=== PATIENT | female | born 1945 | race Caucasian/White ===

== ENCOUNTER 2017-07-09 15:45 | Emergency (ER) | payer MEDICARE ==
[~2017-07-09] VITALS: Ht 162.6 cm; Wt 51.7 kg
[~2017-07-09 15:45] MED LIST: ALBUTEROL0.63 MG/3; ALBUTEROL1.25 MG/3 NEB; ALBUTEROL2.5 MG/3 M NEB; AMIODARONE HCL200 MG PO; AMLODIPINE BESY10 MG PO; AMLODIPINE BESYL5 MG PO; ASCORBIC ACID500 MG PO; ASPIR 8181 MG PO; ATORVASTATIN CA20 MG PO; AZITHROMYCIN250 MG PO; Albuterol/Ipratropium NEB; B-COMPLEX PLUS1 EACH PO; BUMETANIDE1 MG PO; BUPROPION HCL75 MG PO; CEFTIN PO; CLONIDINE HCL0.1 MG PO; CLOPIDOGREL75 MG PO; CYCLOBENZAPRINE10 MG PO; Calcium Carbonate PO; DEXILANT60 MG PO; DIFLUCAN150 MG PO; DIGOXIN125 MCG PO; DOCUSATE SODIU100 MG PO; DOXYCYCLINE HY100 MG PO; DOXYCYCLINE HYC20 MG PO; ELIQUIS PO; FEOSOL325 MG PO; FERROUS SULFAT325 M1 PO; FERROUS SULFAT325 MG PO; FLECAINIDE ACE100 MG PO; GABAPENTIN100 MG PO; GABAPENTIN400 MG PO; GABAPENTIN800 MG PO; GLIPIZIDE ER2.5 MG PO; GLIPIZIDE ER5 MG PO; GLIPIZIDE5 MG PO; HYDRALAZINE HCL25 MG PO; HYDROCHLOROTHIA25 MG PO; HYDROCODON-ACE1 EAC9 PO; IPRATROPIU0.2 MG/1 M NEB; IRON325 M1 PO; LASIX40 MG PO; LEVAQUIN500 MG PO; LEVOTHYROXINE88 MCG PO; LORAZEPAM0.5 MG PO; LYRICA50 MG PO; LYRICA75 MG; MAGNESIUM OXID400 MG PO; MELATONIN 1 MG1 EACH PO; METFORMIN HCL500 M2 PO; METFORMIN HCL500 MG PO; METOCLOPRAMIDE10 MG PO; METOPROLOL TART25 MG PO; MICARDIS40 MG PO; MINOCIN50 MG PO; MIRTAZAPINE15 MG PO; MONTELUKAST SOD10 MG PO; MUCINEX DM ER1 EACH PO; MULTAQ400 MG PO; Multivitamins/Minerals PO; NAMENDA10 MG PO; NORCO 10-325 T1 EACH; NORCO 10-325 T1 EACH PO; NORCO 5-325 TA1 EACH PO; NORVASC10 MG PO; OS-CAL 500+D T1 EACH PO; PANTOPRAZOLE SO40 MG PO; POTASSIUM CHLO20 ME1 PO; PREDNISONE20 MG PO; PROTONIX40 MG PO; QUETIAPINE FUMA25 MG PO; REGLAN10 MG PO; RISPERIDONE0.25 MG PO; ROPINIROLE HC0.25 MG PO; SPIRIVA18 MCG INH; SUCRALFATE1 GM PO; SYMBICORT 16010.2 GM INH; TERBINAFINE HC250 MG PO; TIZANIDINE HCL4 M1 PO; TRADJENTA5 MG PO; TYLENOL # 31 EA PO; TYLENOL WITH C1 EACH PO; ULTRAM50 MG PO; VENELEX OINTMEN60 GM TP; XOPENEX HFA15 GM IH; ZINC SULFATE220 M1 PO; ZOFRAN ODT4 MG PO; ZOLOFT50 MG PO; ZYVOX600 MG PO; [UNRECOGNIZED DRUG - CODE] PO
--- OUTSIDE RECORDS SUMMARY | 2017-07-09 15:48 | XMS REPORT | Clinical Summary ---
Author Author [facility] Organization [facility] Address Unknown Phone Unavailable Care Team Providers Care Staff Mine Warfare Officer Name Role Phone KosseJulio martínez PCP Allergies Active Allergy Reactions Severity Noted Date Comments Ampicillin Hives Medium 07/12/2016 Sulfa (Sulfonamide Hives Medium 07/12/2016 Antibiotics) Current Medications Prescription Sig. Disp. Refills Start End Date Status Date clonIDINE (CATAPRES) 0.1 Take 0.1 mg by mouth Active MG tablet every morning. amLODIPine (NORVASC) 10 Take 5 mg by mouth every Active mg tablet morning. Pt takes 1/2 a tablet of 10 mg=dose of 5 mg digOXIN (LANOXIN) 125 mcg Take 125 mcg by mouth Active tablet every morning. clopidogrel (PLAVIX) 75 Take 75 mg by mouth every Active mg tablet morning. BUMETanide (BUMEX) 1 MG Take 2 mg by mouth 2 Active tablet (two) times a day. predniSONE (DELTASONE) 20 Take 20 mg by mouth every Active mg tablet morning. atorvastatin (LIPITOR) 20 Take 20 mg by mouth Active MG tablet nightly. rOPINIRole (REQUIP) 0.25 Take 0.25 mg by mouth 2 Active MG tablet (two) times a day. pantoprazole (PROTONIX) Take 40 mg by mouth 2 Active 40 MG EC tablet (two) times a day. levothyroxine (SYNTHROID, Take 88 mcg by mouth Active LEVOXYL) 88 mcg tablet daily before breakfast. tiZANidine (ZANAFLEX) 4 Take 4 mg by mouth 2 Active MG tablet (two) times a day. LORAZepam (ATIVAN) 0.5 MG Take 0.5 mg by mouth 2 Active tablet (two) times a day. ipratropium-albuterol Take 3 mL by nebulization Active (DUO-NEB) 0.5-2.5 mg/mL Every 6 hours while awake nebulizer as needed (RT) for wheezing or shortness of breath. metoclopramide (REGLAN) Take 10 mg by mouth 4 Active 10 MG tablet (four) times a day as needed (nausea). montelukast (SINGULAIR) Take 10 mg by mouth daily Active 10 mg tablet as needed (allergies). flurbiprofen (ANSAID) 100 Take 100 mg by mouth 3 08/07/19 Active MG tablet (three) times a day as 17 needed (inflammation). oxyCODone-acetaminophen Take 1 tablet by mouth 08/06/19 Active (PERCOCET) 7.5-325 mg per every 6 (six) hours as 17 tablet needed for pain. LYRICA 150 mg capsule Take 150 mg by mouth 3 07/18/19 Active (three) times a day as 17 needed for other. LANTUS SOLOSTAR 100 Inject 18 Units under the 07/18/19 Active unit/mL injection (pen) skin 2 (two) times a day. 17 glipiZIDE (GLUCOTROL) 5 Take 2.5 mg by mouth Active MG tablet daily with breakfast. carbidopa-levodopa Take 1 tablet by mouth 2 09/08/19 Active (SINEMET CR) 25-100 mg (two) times a day. 17 per CR tablet doxycycline (VIBRAMYCIN) Take 100 mg by mouth 2 09/05/19 Active 100 MG capsule (two) times a day. 17 glipiZIDE (GLUCOTROL) 5 Take 2.5 mg by mouth 08/02/19 Discontin MG tablet every morning. Pt takes 17 ued 1/2 a tab of 5 mg=dose of 2.5 mg amIODarone (PACERONE) 200 Take 200 mg by mouth 09/15/19 Discontin MG tablet every morning. 17 ued pregabalin (LYRICA) 100 Take 100 mg by mouth 3 08/13/19 Discontin MG capsule (three) times a day as 17 ued needed (Neuropathy). HYDROcodone-acetaminophen Take 1 tablet by mouth 08/13/19 Discontin (NORCO) 10-325 mg per every 6 (six) hours as 17 ued tablet needed for moderate pain. terbinafine HCl (LamiSIL) Take 250 mg by mouth 07/17/19 Discontin 250 mg tablet daily as needed. 17 ued insulin GLARGINE (LANTUS) Inject 18 Units under the 10.8 mL 0 08/13/19 Discontin 100 unit/mL injection skin 2 (two) times a day 17 17 ued (vial) for 30 days. insulin lispro (HumaLOG) Inject 10 Units under the 10 mL 12 07/17/19 08/16/19 100 unit/mL injection skin 3 (three) times a 17 17 day before meals for 30 days. carbidopa-levodopa Take 1 tablet by mouth 2 60 tablet 0 08/02/19 (SINEMET CR) 25-100 mg (two) times a day for 30 17 17 per CR tablet days. flecainide (TAMBOCOR) 50 Take 1 tablet (50 mg 60 tablet 0 09/15/19 10/15/19 MG tablet total) by mouth every 12 17 17 (twelve) hours for 30 days. Active Problems Problem Noted Date COPD with acute exacerbation 08/12/2016 Chronic back pain 07/25/2016 Abdominal aortic aneurysm (AAA) 07/25/2016 Type 2 diabetes mellitus with ketoacidosis without coma 07/25/2016 COPD exacerbation 07/24/2016 Squamous cell carcinoma of lung, stage I 07/16/2016 Pneumonia of left lower lobe due to infectious organism 07/12/2016 Encounters Date Type Specialty Care Team Description 09/10/2016 [facility] General Internal Medicine Yanely Guzman MD COPD with acute - Encounter Don Caal MD exacerbation (Primary 09/14/2016 Dx); Chest pain, unspecified type; Squamous cell carcinoma of lung, stage I, unspecified laterality 08/12/2016 Emergency General Internal Medicine Dean Rosales COPD with acute - MD Pete exacerbation (Primary 08/13/2016 Jorge Guzmán, Dx); Type 2 diabetes mellitus Don Caal MD with ketoacidosis without coma, with long-term current use of insulin 07/30/2016 Anesthesia Gastroenterology Santiago Shah, [employer]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 Procedure Pass Gastroenterology 07/30/2016 Surgery Gastroenterology Tomy Ochoa MD ESOPHAGOGASTRODUODENOSCOP Y (EGD) 07/24/2016 [facility] General Internal Medicine Bethany Kendrickfarhana Martinez, COPD exacerbation - Encounter MD (Primary Dx); 08/01/2016 Titi Montero DO Anemia of chronic disease; Type 2 diabetes mellitus with ketoacidosis without coma, with long-term current use of insulin 07/12/2016 [facility] General Internal Medicine Barrington Isac Padilla Pneumonia of left lower - Encounter MD Odette lobe due to infectious 07/16/2016 Titi Montero DO organism (Primary Dx); Don Caal MD COPD exacerbation; Squamous cell carcinoma of lung, stage I, unspecified laterality after 07/08/2016 Social History Tobacco Use Types Packs/Day Years Used Date Current Some Day Smoker 30 Tobacco Cessation: Ready to Quit: No Alcohol Use Drinks/Week oz/Week Comments No Sex Assigned at Date Recorded Not on file Last Filed Vital Signs Vital Sign Reading Time Taken Blood Pressure 106/51 09/14/2016 11:30 AM CDT Pulse 70 09/14/2016 11:30 AM CDT Temperature 36 C (96.8 F) 09/14/2016 11:30 AM CDT Respiratory Rate 18 09/14/2016 11:30 AM CDT Oxygen Saturation 96% 09/14/2016 11:30 AM CDT Inhaled Oxygen - - Concentration Weight 54.4 kg (119 lb 14.9 oz) 07/27/2016 11:00 AM CDT Height 162.6 cm (5' 4") 08/12/2016 9:19 AM CDT Body Mass Index 23.42 07/27/2016 11:00 AM CDT Plan of Treatment Health Maintenance Due Date Last Done Comments FOOT EXAM 1953 OPHTHALMOLOGY EXAM 1953 COLONOSCOPY 1993 MAMMOGRAM 1993 ZOSTER VACCINE 2003 PNEUMOCOCCAL 02/04/2008 POLYSACCHARIDE VACCINE AGE 65 AND OVER PNEUMOCOCCAL-13 02/04/2008 INFLUENZA VACCINE 12/08/2016 Implants Implanted Type Area Assistant News Director Device Expiration Model / Identifier Date Serial / Lot Pacemaker-10/12/2008 Pacemaker MEDTRONIC [id number] / Implanted: 10/12/2008 (Quantity not [id number] on file) / Procedures Procedure Name Priority Date/Time Associated Diagnosis Comments ECHOCARDIOGRAM 2D Routine 09/11/2016 Results for this COMPLETE W MMODE SPECTRAL 2:30 PM CDT procedure are in the [facility] (53117) results section. ESOPHAGOGASTRODUODENOSCOP 07/30/2016 Y (EGD) 2:30 PM CDT [place] INSERT NON-TUNNEL CV Routine 07/27/2016 COPD exacerbation Results for this CATH 8:01 PM CDT Anemia of chronic disease procedure are in the results section. after 07/08/2016 Results * POC glucose (09/14/2016 12:14 PM) Only the most recent of 118 results within the time period is included. Component Value Ref Range POC glucose 135 (H) 65 - 99 mg/dL Comment: Meter ID: [id number] Access Spec: Alberto Lyn Specimen Performing Laboratory [facility] DEPARTMENT OF PATHOLOGY AND GENOMIC MEDICINE [address] [place] [address] * Echocardiogram complete w contrast and 3D if needed (09/11/2016 2:30 PM) Component Value Ref Range Velocity Ratio (V1/V2) 0.87 m/s IVS,d 1.00 0.6 - 1.2 cm Ao root annulus 3.12 cm EF 62.28 % LVPWD,d 1.70 cm AoV Mean PG 8.79 mmHg AV LVOT peak gradient 14.50 mmHg MV valve area p 1/2 3.19 cm2 method E/A ratio 2.73 E wave decelartion time 359.65 msec LVOT Diam,S 1.88 cm LVOT area 2.77 cm2 LVOT Vmax 1.90 m/s LVOT VTI 0.32 m AoV Peak PG 18.98 mmHg MV Peak E Adrian 1.31 m/s MV stenosis pressure 1/2 68.91 ms time MV Peak A Adrian 0.48 m/s AoV Area, Vmax 2.43 cm2 AoV Area, VTI 2.37 cm2 AoV Vmax 2.18 m/s LV,d 3.33 cm LV,s 2.24 cm RVSP (TR) 67.17 mmHg TR Vpeak 3.78 mm/s MV E A ratio 2.75 mmHg RA pressure 10 mmHg TR pk grad 52.60 mmHg MR Vmax 5.12 m/s MR peak grad 104.86 mmHg RVSP 67.17 mmHg AR Press Half Time 434 ms LV SYS VOL 17.04 ml LV BLANCO VOL 45.18 ml LA diam s 4.60 cm LA area s A4C 22.20 cm2 LV SV Teich 2D 28.14 ml AoV Cusp sep 1.56 Aortic Root 3.10 AoV Vmn 1.36 AR slope 2.55 Ar Vmax 3.87 IVS s 2D 1.17 LA Ao Ratio Mmode 1.47 AR maxPG 52.28 D E excurs 1.70 E f slope 0.04 E prime lat 0.08 E richar sept 0.05 PV acc T slope 7.10 PV AT 128.03 msec AoV VTI 0.38 m TR Vmax 452.72 LVOT Vmn 1.24 Pt Size 0.00 Pt Wt 0.00 LVOT mean grad 7.20 mmHg AR DT 1,485.21 msec LVPW s PLAX 1.80 cm MV Decel slope 3.63 m/s2 Specimen Performing Laboratory [facility] [address] [place] [address] Narrative The left ventricular chamber size is normal. The right ventricle size is moderately enlarged. Normal right ventricular function. The aortic valve appears trileaflet. Mild aortic regurgitation. No evidence of aortic valve stenosis. Moderate pulmonary hypertension, PA systolic pressure 65mmHg * Blood culture, aerobic & anaerobic (09/11/2016 8:51 AM) Only the most recent of 5 results within the time period is included. Component Value Ref Range Blood culture isolate No growth after 5 days of incubation. Comment: Specimen Information Specimen Source: Blood Specimen Site: Unspecified Specimen Performing Laboratory Blood [facility] DEPARTMENT OF PATHOLOGY AND GENOMIC MEDICINE [address] [place] [address] * Troponin (09/10/2016 9:14 PM) Only the most recent of 9 results within the time period is included. Component Value Ref Range Troponin <0.300 0.000 - 0.300 ng/mL Comment: 0.30 - 1.49 ng/ml May indicate increased risk of acute coronary syndrome. >=1.5 ng/ml Consistent with acute myocardial infarction. The diagnostic value of a single normal or non-diagnostic result is questionable. Serial samples at 2-6 hour intervals are required to rule out acute myocardial injury. Specimen Performing Laboratory Plasma specimen [facility] DEPARTMENT OF PATHOLOGY AND GENOMIC MEDICINE [address] [place] [address] * Digoxin level (09/10/2016 9:14 PM) Only the most recent of 2 results within the time period is included. Component Value Ref Range Digoxin 1.0 0.8 - 2.0 ng/mL Comment: For valid Digoxin results, at least 6 hours should elapse between time of last dose and collection of blood. Otherwise, result may be false high. Therapeutic Range: 0.8 - 2.0 ng/mL Specimen Performing Laboratory Plasma specimen [facility] DEPARTMENT OF PATHOLOGY AND GENOMIC MEDICINE [id number] [place] [address] [place] [address] * Lipid panel (09/10/2016 9:14 PM) Only the most recent of 2 results within the time period is included. Component Value Ref Range Cholesterol 192 <200 mg/dL Triglycerides 190 (H) <150 mg/dL HDL cholesterol 51 >40 mg/dL LDL cholesterol 121 (H)Comment: Result obtained by direct LDL <100 mg/dL measurement Lipid panel SeeBelow interpretation Comment: Total Cholesterol (mg/dL) <200 Desirable 200-239 Borderline-high >=240 High Triglycerides (mg/dL) <150 Normal 150-199 Borderline-high 200-499 High >=500 Very high HDL Cholesterol (mg/dL) <40 Low (male) <40 Low (female) LDL Cholesterol (mg/dL) <100 Optimal 100-129 Near or above optimal 130-159 Borderline-high 160-189 High >=190 Very high Risk Catergories that modify LDL goals. Risk Catergories LDL goal (mg/dL) CHD and CHD risk equivalent <100 (10-year risk >20%) Multiple (2+) risk factors <130 (10-year risk=<20%) 0-1 risk factors <160 (<10-year risk) Defining levels of lipids in metabolic syndrome Triglycerides >=150 mg/dL HDL Cholesterol Men <40 mg/dL Women <40 mg/dL Non-HDL cholesterol is a second target for therapy in persons with high triglycerides (>=200 mg/dL) Specimen Performing Laboratory Plasma specimen [facility] DEPARTMENT OF PATHOLOGY AND GENOMIC MEDICINE [address] [place] [address] * ECG ED Preliminary Interpretation - NOT AN ORDER (09/10/2016 2:13 PM) Jayleen Guzman MD 09/10/20162:13 PM ECG ED Preliminary Interpretation - Not an Order Performed by: YANELY GUZMAN Authorized by: YANELY GUZMAN ECG reviewed by ED Physician in the absence of a aircraft skin burnisher: yes Rate: ECG rate:70 Rhythm: Rhythm: paced Pacing: Type of pacing:AV * XR Chest 1 Vw Portable (09/10/2016 1:51 PM) Only the most recent of 4 results within the time period is included. Specimen Performing Laboratory [facility] [address] [place] [address] Narrative PROCEDURE:XR CHEST 1 VW PORTABLE CLINICAL HISTORY:Chest Pain cough. History of left breast carcinoma. COMPARISON:August 12, 2016-July 24, 2016 TECHNIQUE: A single view of the chest was performed in the AP upright projection. FINDINGS: No active pleural, parenchymal, or mediastinal abnormality is noted. A dual-lead pacemaker is present with the proximal lead projected over the region of the right atrium and the distal lead tip projected in the vicinity of the right ventricular apex. The patient has had a prior median sternotomy and CABG surgery. Possible surgical lalita are seen projected at the base of the left neck and in the left axilla. Noacute abnormality is demonstrated of the visualized bones of the thorax. IMPRESSION: Noacute abnormality in the chest. [id number] Procedure Note Interface, Radiology Results Incoming - 09/10/2016 2:11 PM CDT PROCEDURE: XR CHEST 1 VW PORTABLE CLINICAL HISTORY: Chest Pain cough. History of left breast carcinoma. COMPARISON: August 12, 2016-July 24, 2016 TECHNIQUE: A single view of the chest was performed in the AP upright projection. FINDINGS: No active pleural, parenchymal, or mediastinal abnormality is noted. A dual-lead pacemaker is present with the proximal lead projected over the region of the right atrium and the distal lead tip projected in the vicinity of the right ventricular apex. The patient has had a prior median sternotomy and CABG surgery. Possible surgical lalita are seen projected at the base of the left neck and in the left axilla. No acute abnormality is demonstrated of the visualized bones of the thorax. IMPRESSION: No acute abnormality in the chest. [id number] * Estimated GFR (09/10/2016 1:30 PM) Only the most recent of 17 results within the time period is included. Component Value Ref Range GFR Non Af Amer 40 (A) mL/min/1.73 m2 GFR Af Amer 49 (A) mL/min/1.73 m2 Comment: Chronic kidney disease: <60 mL/min/1.73m2 Kidney failure: <15 mL/min/1.73m2 The estimated GFR is calculated from the IDMS-traceable Modification of Diet in Renal Disease Equation. The accuracy of the calculation is poor when the creatinine is normal. Calculated values >90 mL/min/1.73m2 are not reported. This equation has not been validated in children (<18 years), women, the elderly (>70 years), or ethnic groups other than Caucasians and Americans. Specimen Performing Laboratory Plasma specimen [facility] OF PATHOLOGY AND [facility] [id number] [place] [address] [place] [address] * Partial thromboplastin time, activated (09/10/2016 1:30 PM) Only the most recent of 3 results within the time period is included. Component Value Ref Range PTT 19.5 (L) 23.0 - 36.0 sec Comment: PTT therapeutic range for unfractionated heparin is 61.0-112.0 seconds which corresponds to Anti-Xa 0.3-0.7 U/ml. Specimen Performing Laboratory Blood [facility] PATHOLOGY AND [facility] [id number] [place] [address] [place] [address] * Prothrombin time with INR (09/10/2016 1:30 PM) Only the most recent of 4 results within the time period is included. Component Value Ref Range Prothrombin time 12.8 12.0 - 15.0 sec INR 1.0 Comment: The International Normalized Ratio (INR) is a therapeutic monitoring tool for patients who are stable on oral anticoagulant therapy. An INR of 2.0-3.0 is suggested for deep vein thrombosis/pulmonary embolism. Specimen Performing Laboratory Blood [facility] PATHOLOGY AND [facility] [id number] [place] [address] [place] [address] * CBC with platelet and differential (09/10/2016 1:30 PM) Only the most recent of 13 results within the time period is included. Component Value Ref Range WBC 10.70 4.50 - 11.00 k/uL RBC 3.02 (L) 4.20 - 5.50 m/uL HGB 8.2 (L) 12.0 - 16.0 g/dL HCT 26.9 (L) 37.0 - 47.0 % MCV 89.1 82.0 - 100.0 fL MCH 27.2 27.0 - 34.0 pg MCHC 30.5 (L) 31.0 - 37.0 g/dL RDW - SD 61.9 (H) 37.0 - 55.0 fL MPV 11.9 8.8 - 13.2 fL Platelet count 290 150 - 400 k/uL Nucleated RBC 0.00 /100 WBC Neutrophils 72.7 (H) 39.0 - 69.0 % Lymphocytes 20.6 (L) 25.0 - 45.0 % Monocytes 5.0 0.0 - 10.0 % Eosinophils 0.4 0.0 - 5.0 % Basophils 0.1 0.0 - 1.0 % Immature granulocytes 1.2 (H)Comment: "Immature granulocytes" 0.0 - 1.0 % (promyelocytes, myelocytes, metamyelocytes) Specimen Performing Laboratory Blood [facility] DEPARTMENT OF PATHOLOGY AND GENOMIC MEDICINE [address] [place] [address] * Magnesium level (09/10/2016 1:30 PM) Only the most recent of 6 results within the time period is included. Component Value Ref Range Magnesium 2.0 1.6 - 2.4 mg/dL Specimen Performing Laboratory Plasma specimen [facility] OF PATHOLOGY AND [facility] [address] [place] [address] * Comprehensive metabolic panel (09/10/2016 1:30 PM) Only the most recent of 7 results within the time period is included. Component Value Ref Range Sodium 146 135 - 148 mEq/L Potassium 4.2 3.5 - 5.0 mEq/L Chloride 105 98 - 112 mEq/L CO2 23 (L) 24 - 31 mEq/L Anion gap 18 (H) 7 - 15 mEq/L Comment: Starting from August , anion gap calculation no longer incorporates potassium. Please note the change. BUN 25 (H) 8 - 23 mg/dL Creatinine 1.3 (H) 0.5 - 0.9 mg/dL Glucose 174 (H) 65 - 99 mg/dL Calcium 9.1 8.8 - 10.2 mg/dL Protein 6.2 (L) 6.3 - 8.3 g/dL Comment: 4.6-7.0 g/dL 1 week 4.4-7.6 g/dL 7 months-1year 5.1-7.3 g/dL 1-2 years 5.6-7.5 g/dL >3 years 6.0-8.0 g/dL 18-150 6.3-8.3 g/dL Albumin 3.5 3.5 - 5.0 g/dL A/G ratio 1.3 0.7 - 3.8 Alkaline phosphatase 66 35 - 104 U/L AST 12 10 - 35 U/L ALT 11 5 - 50 U/L Total bilirubin 0.4 0.0 - 1.2 mg/dL Specimen Performing Laboratory Plasma specimen [facility] DEPARTMENT PATHOLOGY AND [address] [place] [address] * ECG 12 lead (09/10/2016 1:14 PM) Only the most recent of 5 results within the time period is included. Component Value Ref Range Ventricular rate 70 Atrial rate 50 QRSD interval 78 QT interval 394 QTC interval 425 QRS axis 1 -19 T wave axis 239 EKG impression Accelerated Junctional rhythm with frequent AV dual-paced complexes-Left ventricular hypertrophy with repolarization abnormality-Abnormal ECG-In automated comparison with ECG of 12-AUG-2016 09:20,-Electronic ventricular pacemaker has replaced Junctional rhythm- Specimen Performing Laboratory [facility] [address] [place] [address] * Smear review (08/13/2016 7:05 AM) Only the most recent of 4 results within the time period is included. Component Value Ref Range Platelet slide review Maru adequate Anisocytosis Moderate Polychromasia Occasional Tear drop cells Occasional Schistocytes Occasional [place] cells Occasional Elliptocytes Moderate (A) Specimen Performing Laboratory [facility] DEPARTMENT PATHOLOGY AND [address] [place] [address] * Phosphorus level (08/12/2016 11:00 AM) Only the most recent of 4 results within the time period is included. Component Value Ref Range Phosphorus 3.2 2.4 - 4.5 mg/dL Specimen Performing Laboratory Plasma specimen [facility] DEPARTMENT PATHOLOGY AND [address] [place] [address] * Lactic acid level (08/12/2016 11:00 AM) Only the most recent of 3 results within the time period is included. Component Value Ref Range Lactic acid 1.3 0.5 - 2.2 mmol/L Specimen Performing Laboratory Plasma specimen [facility] DEPARTMENT PATHOLOGY [address] [place] [address] * Hemoglobin A1c (08/12/2016 11:00 AM) Only the most recent of 2 results within the time period is included. Component Value Ref Range Hemoglobin A1C 6.9 (H) 4.0 - 6.0 % Comment: Less than 6% - Goal of therapy for Type II Diabetes Less than 7%- Goal of therapy for Type I Diabetes Less than 8%- Acceptable control for Type I or Type II Diabetes Greater than 8%- Unacceptable control; action indicated. (A DA94) Specimen Performing Laboratory Blood [facility] DEPARTMENT PATHOLOGY AND [facility] [address] [place] [address] * Group A strep, rapid antigen (08/12/2016 9:58 AM) Component Value Ref Range Group A strep, rapid Negative for Group A Streptococcus antigen. All antigen result negative Group A Streptococcus antigen screens are confirmed by culture. Comment: Specimen Information Specimen Source: Throat Specimen Site: Not otherwise specified Specimen Performing Laboratory Throat - Not otherwise [facility] PATHOLOGY [facility] specified [address] [place] [address] * Influenza antigen (08/12/2016 9:58 AM) Component Value Ref Range Influenza antigen Negative for Influenza A/B antigen. Comment: Specimen Information Specimen Source: Throat Specimen Site: Not otherwise specified Specimen Performing Laboratory Throat - Not otherwise [facility] PATHOLOGY [facility] specified [address] [place] [address] * Strep screen culture (08/12/2016 9:31 AM) Component Value Ref Range Strep screen culture No beta hemolytic Streptococci isolated isolate Comment: Specimen Information Specimen Source: Throat Specimen Site: Not otherwise specified Specimen Performing Laboratory Throat - Not otherwise [facility] DEPARTMENT OF PATHOLOGY AND GENOMIC MEDICINE specified [address] [place] [address] * B natriuretic peptide (08/12/2016 9:31 AM) Only the most recent of 2 results within the time period is included. Component Value Ref Range BNP 245 (H) 0 - 100 pg/mL Specimen Performing Laboratory Blood [facility] DEPARTMENT PATHOLOGY AND [facility] [address] [place] [address] * Basic metabolic panel (08/01/2016 6:10 AM) Only the most recent of 10 results within the time period is included. Component Value Ref Range Sodium 134 (L) 135 - 148 mEq/L Potassium 4.3 3.5 - 5.0 mEq/L Chloride 98 98 - 112 mEq/L CO2 22 (L) 24 - 31 mEq/L Anion gap 14 7 - 15 mEq/L Comment: Starting from August , anion gap calculation no longer incorporates potassium. Please note the change. BUN 42 (H) 8 - 23 mg/dL Creatinine 1.5 (H) 0.5 - 0.9 mg/dL Glucose 137 (H) 65 - 99 mg/dL Calcium 8.5 (L) 8.8 - 10.2 mg/dL Specimen Performing Laboratory Plasma specimen [facility] DEPARTMENT OF PATHOLOGY AND GENOMIC MEDICINE [address] [place] [address] * Surgical pathology request (07/30/2016 3:40 PM) Component Value Ref Range Surgical pathology report See link below for PDF Lab Report Specimen Performing Laboratory [facility] DEPARTMENT OF PATHOLOGY AND GENOMIC MEDICINE [address] [place] [address] * CT Stroke Brain Wo Contrast (07/30/2016 1:17 PM) Specimen Performing Laboratory [facility] [address] [place] [address] Narrative Study: CT STROKE BRAIN WO CONTRAST History:STROKE COMPARISON:May 20, 2016 TECHNIQUE: Multiple axial CT images of the head obtained without IV contrast. CT imaging was performed with iterative reconstruction technique and/or automated exposure control to reduce radiation dose. FINDINGS: Parenchymal volume is mildly diffusely decreased similar to the prior exam.. There are changes of chronic small vessel ischemic disease There are no signs of significant edema or acute hemorrhage, midline shift, hydrocephalus, or extra axial collections. .The visualized paranasal sinuses are well aerated.The mastoid air cells are well aerated. No destructive calvarial lesions are seen. The visualized orbits are unremarkable. IMPRESSION: No acute intracranial hemorrhage or mass effect. The patient's ICU nurse was notified of the findings at 1:29 PM July 30, 2016. [facility]-[id number] Procedure Note Interface, Radiology Results Incoming - 07/31/2016 3:18 PM CDT Study: CT STROKE BRAIN WO CONTRAST History:STROKE COMPARISON:May 20, 2016 TECHNIQUE: Multiple axial CT images of the head obtained without IV contrast. CT imaging was performed with iterative reconstruction technique and/or automated exposure control to reduce radiation dose. FINDINGS: Parenchymal volume is mildly diffusely decreased similar to the prior exam.. There are changes of chronic small vessel ischemic disease There are no signs of significant edema or acute hemorrhage, midline shift, hydrocephalus, or extra axial collections. .The visualized paranasal sinuses are well aerated. The mastoid air cells are well aerated. No destructive calvarial lesions are seen. The visualized orbits are unremarkable. IMPRESSION: No acute intracranial hemorrhage or mass effect. The patient's ICU nurse was notified of the findings at 1:29 PM July 30, 2016. [facility]-[id number] * Occult blood, stool (07/30/2016 2:45 AM) Component Value Ref Range Occult blood, stool Positive for Occult blood (A) Comment: Specimen Information Specimen Source: Stool Specimen Site: Preserved Specimen Performing Laboratory Stool - Preserved [facility] DEPARTMENT OF PATHOLOGY AND GENOMIC MEDICINE [address] [place] [address] [place] [address] * Hemoglobin & hematocrit (07/29/2016 6:46 PM) Only the most recent of 2 results within the time period is included. Component Value Ref Range HGB 9.6 (L) 12.0 - 16.0 g/dL HCT 30.1 (L) 37.0 - 47.0 % Specimen Performing Laboratory Blood [facility] DEPARTMENT OF PATHOLOGY AND GENOMIC MEDICINE [id number] [place] [address] [place] [address] * Transfuse RBC (07/28/2016 6:02 AM) Only the most recent of 3 results within the time period is included. * CENTRAL LINE (07/27/2016 8:01 PM) Narrative Mango Mckoy MD 07/27/20168:01 PM Central Line Insertion Performed by: MANGO MCKOY Authorized by: MANGO MCKOY Consent: Consent obtained:Written and verbal Consent given by:Patient Risks discussed:Arterial puncture, bleeding, infection, incorrect placement, nerve damage and pneumothorax Alternatives discussed:Delayed treatment [place] protocol: Procedure explained and questions answered to patient or proxy's satisfaction: yes Relevant documents present and verified: yes Test results available and properly labeled: yes Imaging studies available: yes Required blood products, implants, devices, and special equipment available: yes Site/side marked: yes Immediately prior to procedure, a time out was called: yes Patient identity confirmed:Verbally with patient, arm band and provided demographic data Pre-procedure details: Hand hygiene: Hand hygiene performed prior to insertion Sterile barrier technique: All elements of maximal sterile technique followed Skin preparation:ChloraPrep Skin preparation agent: Skin preparation agent completely dried prior to procedure Sedation: Sedation Type:Narcotic Narcotic(s) used::Morphine Anesthesia (see MAR for exact dosages): Anesthesia method:Local infiltration Local anesthetic:Lidocaine 1% w/o epi Procedure details: Catheter type:Triple lumen Catheter size:7 Fr Catheter site: internal jugular vein Catheter Site Laterality:Left Patient position:Reverse Trendelenburg Landmarks identified: yes Ultrasound guidance: yes Number of attempts:2 Successful placement: yes Post-procedure details: Post-procedure:Dressing applied and line sutured Assessment:Blood return through all ports and free fluid flow Patient tolerance of procedure:Tolerated well, no immediate complications Comments: Awaiting for PCXR. * Prepare RBC, 2 Units (07/26/2016 12:19 PM) Component Value Ref Range Product name Apheresis -1 LR #2 Unit number [id number] Product code [id number] Dispense status Transfused Blood expiration date 20160819 Blood type code 6200 Blood type A POSITIVE Product name Apheresis -1 LR #1 Unit number [id number] Product code [id number] Dispense status Transfused Blood expiration date 20160819 Blood type code 6200 Blood type A POSITIVE Specimen Performing Laboratory [facility] DEPARTMENT OF PATHOLOGY AND GENOMIC MEDICINE [address] [place] [address] [place] [address] * Type and screen (07/26/2016 12:19 PM) Component Value Ref Range ABO grouping A Rh type POS Antibody screen NEG Specimen Performing Laboratory Blood [facility] DEPARTMENT OF PATHOLOGY AND GENOMIC MEDICINE [address] [place] [address] [place] [address] * Urinalysis screen and microscopy, with reflex to culture (07/24/2016 8:05 AM) Only the most recent of 2 results within the time period is included. Component Value Ref Range Specimen site Clean catch Color, UA Straw Appearance, UA Cloudy Specific gravity, UA 1.010 1.001 - 1.035 pH, UA 7.0 5.0 - 8.5 Protein, UA Negative Negative Glucose, UA Negative Negative Ketones, UA Negative Negative Bilirubin, UA Negative Negative Blood, UA Negative Negative Nitrite, UA Negative Negative Urobilinogen, UA Negative <2.0 Leukocyte esterase, UA Negative Negative Epithelial cells, UA Many /HPF WBC, UA 0-5 0 - 4 /HPF RBC, UA 0-5 0 - 2 /HPF Bacteria, UA None seen None seen Yeast, UA Many (A) Yeast with pseudohyphae, None seen UA Specimen Performing Laboratory Urine [facility] DEPARTMENT OF PATHOLOGY AND GENOMIC MEDICINE [address] [place] [address] Narrative CBC only; Does not include a differential Specimen must be received in the laboratory within 2 hours of collection. Specimen Source->Urine * Gram stain (07/24/2016 8:05 AM) Component Value Ref Range Gram stain isolate Rare WBC's Rare Gram positive rods Comment: Specimen Information Specimen Source: Urine Specimen Site: See UA Specimen Performing Laboratory Urine [facility] DEPARTMENT OF PATHOLOGY AND GENOMIC MEDICINE [address] [place] [address] * Urine culture (07/24/2016 8:05 AM) Only the most recent of 2 results within the time period is included. Component Value Ref Range Urine culture isolate Enterococcus faecalis >10-5 cfu/ml The performance characteristics of this assay on this isolate were validated by the Microbiology Laboratory at [facility]. This source has not been approved by the U.S. Food and Drug Administration. The results are not intended to be used as the sole means for clinical diagnosis or patient management. The Microbiology Laboratory is authorized under the clinical Laboratory Improvement Amendments of 1988 (CLIA-88) to perform high complexity testing. The performance characteristics of this assay on this isolate were validated by the Microbiology Laboratory at [facility]. This source has not been approved by the U.S. Food and Drug Administration. The results are not intended to be used as the sole means for clinical diagnosis or patient management. The Microbiology Laboratory is authorized under the clinical Laboratory Improvement Amendments of 1988 (CLIA-88) to perform high complexity testing. (A) Comment: Specimen Information Specimen Source: Urine Specimen Site: See UA Specimen Performing Laboratory Urine [facility] DEPARTMENT OF PATHOLOGY AND GENOMIC MEDICINE [address] [place] [address] Organism Antibiotic Method Susceptibility Enterococcus faecalis Ampicillin ANDREE 8 mcg/mL: Susceptible Enterococcus faecalis Nitrofurantoin ANDREE <=16 mcg/mL: Susceptible Enterococcus faecalis Levofloxacin ANDREE >4 mcg/mL: Resistant Enterococcus faecalis Linezolid ANDREE <=1 mcg/mL: Susceptible Enterococcus faecalis Minocycline ANDREE >8 mcg/mL: Resistant Enterococcus faecalis Tetracycline ANDREE >8 mcg/mL: Resistant Enterococcus faecalis Vancomycin ANDREE 1 mcg/mL: Susceptible * XR Chest 1 Vw (07/24/2016 5:34 AM) Specimen Performing Laboratory [facility] [address] [place] [address] Narrative EXAMINATION:XR CHEST 1 VW CLINICAL HISTORY:Chest Pain COMPARISON:07/12/2016 IMPRESSION: Right-sided pacemaker is unchanged. Cardiac silhouette is upper limits of normal. Chronic appearing interstitial lung markings. Minimal vascular congestion. No effusions or pneumothorax. No other significant interval change. [facility]-[id number] Procedure Note Interface, Radiology Results Incoming - 07/24/2016 6:04 AM CDT EXAMINATION: XR CHEST 1 VW CLINICAL HISTORY: Chest Pain COMPARISON: 07/12/2016 IMPRESSION: Right-sided pacemaker is unchanged. Cardiac silhouette is upper limits of normal. Chronic appearing interstitial lung markings. Minimal vascular congestion. No effusions or pneumothorax. No other significant interval change. [facility]-[id number] * CBC hemogram (07/24/2016 5:05 AM) Component Value Ref Range WBC 18.93 (H) 4.50 - 11.00 k/uL RBC 2.96 (L) 4.20 - 5.50 m/uL HGB 7.9 (L) 12.0 - 16.0 g/dL HCT 25.9 (L) 37.0 - 47.0 % MCV 87.5 82.0 - 100.0 fL MCH 26.7 (L) 27.0 - 34.0 pg MCHC 30.5 (L) 31.0 - 37.0 g/dL RDW - SD 54.4 37.0 - 55.0 fL MPV 11.9 8.8 - 13.2 fL Platelet count 302 150 - 400 k/uL Nucleated RBC 0.00 /100 WBC Specimen Performing Laboratory Blood [facility] DEPARTMENT OF PATHOLOGY AND GENOMIC MEDICINE [address] [place] [address] Narrative CBC only; Does not include a differential Specimen must be received in the laboratory within 2 hours of collection. Specimen Source->Urine * Glucose level (07/13/2016 3:03 PM) Only the most recent of 2 results within the time period is included. Component Value Ref Range Glucose 672 (HH) 65 - 99 mg/dL Comment: Results called to and read back by LOUISE SYED at 15:29 07/13/2016 BY [facility] Specimen Performing Laboratory Plasma specimen [facility] DEPARTMENT OF PATHOLOGY AND GENOMIC MEDICINE [address] [place] [address] * Lipase level (07/12/2016 8:25 PM) Component Value Ref Range Lipase 13 13 - 60 U/L Specimen Performing Laboratory Plasma specimen [facility] PATHOLOGY AND GENOMIC [facility] [address] [place] [address] Narrative Specimen must be received in the laboratory within 2 hours of collection. Specimen Source->Urine * Creatine kinase, total (CPK) (07/12/2016 8:25 PM) Component Value Ref Range Creatine kinase 32 26 - 192 U/L Specimen Performing Laboratory Plasma specimen [facility] DEPARTMENT PATHOLOGY AND GENOMIC [facility] [id number] [place] [address] [place] [address] Narrative Specimen must be received in the laboratory within 2 hours of collection. Specimen Source->Urine * Amylase level (07/12/2016 8:25 PM) Component Value Ref Range Amylase 20 13 - 73 U/L Specimen Performing Laboratory Plasma specimen [facility]OLOGY [facility] [id number] [place] [address] [place] [address] Narrative Specimen must be received in the laboratory within 2 hours of collection. Specimen Source->Urine after 07/08/2016 Insurance Payer Benefit Subscriber ID Type Phone Address Plan / Group MEDICARE MEDICARE xxxxxxxxxx Medicare [place] PART A [place] B AARP AARP xxxxxxxxxxx [place] [address]
--- OUTSIDE RECORDS SUMMARY | 2017-07-09 15:49 | XMS REPORT | Continuity of Care Document ---
Author Author [facility] Organization [facility] Address [address] [place] [address] Phone Unavailable Care Team Providers Care Tax Compliance Officer Name Role Phone RDAHA PAYNE DO PCP Insurance Providers Guarantor Serene Andrade Address [address] [place] [address] Email [email or web address] Payer Medicare A & B Policy Number [id number] Subscriber's Name Serene Andrade Olamide Relationship 18 Self / Same As Patient Effective Date 08 Advance Directives Directive Response Recorded Date/Time Does the patient have an advance directive? Yes 07/04/17 1:02am If yes, is advance directive on file with [facility]? No 07/04/17 1:02am If not on file with [facility] will patient provide a copy? No 07/04/17 1:02am Do you have a Directive to Physician? No 07/03/17 12:51pm Do you have a Medical Power of Fruit Shipper? No 07/03/17 12:51pm Do you have an out of hospital Do Not Resuscitate Order? No 07/03/17 12:51pm Do you have any special needs we should be aware of? No 07/03/17 12:51pm Do you have a support person here with you today? No 07/03/17 12:51pm Did patient receive Notice of Privacy Practices? No 07/03/17 12:51pm Did patient receive patient rights and responsibilities? No 07/03/17 12:51pm Problems Medical Problem Onset Date Status Acute on chronic renal insufficiency 08/13/2015 Acute Anemia 08/13/2015 Acute Anemia 12/03/2015 Acute Anemia Unknown Bronchitis 08/13/2015 Acute CHF (congestive heart failure) Unknown COPD exacerbation 04/29/2014 Acute Chest pain 02/28/2015 Acute Chronic pain 08/13/2015 Acute GI bleed Unknown Hypotension 12/03/2015 Acute Leukocytosis Unknown Overuse of medication 12/03/2015 Acute Pneumonia 12/03/2015 Acute Renal insufficiency 02/28/2015 Acute Medications Current Home Medications Medication Dose Units Route Directions Days Qty Instructions Start Date Acetaminophen/Codeine Phosphate (Tylenol # 3*) 1 Ea Tab 1 Tab Oral Every 4 Hours as needed for Pain Albuterol Sulfate 2.5 Mg/3 Ml Vial.neb 3 Ml Nebullizer Rt Q4h 30 Days 120 07/07/17 Amiodarone Hcl 200 Mg Tablet 200 Mg Oral Daily Amlodipine Besylate 10 Mg Tablet 10 Mg Oral Daily 30 Tab Aspirin (Aspir 81) 81 Mg Tablet.dr 81 Mg Oral Daily Budesonide/Formoterol Fumarate (Symbicort 160-4.5 Mcg Inhaler) 10.2 Gm Hfa.aer.ad 2 Inh Inhalation Every 12 Hours Flecainide Acetate 100 Mg Tablet 50 Mg Oral Daily 60 Tab Furosemide (Lasix) 40 Mg Tablet 40 Mg Oral Daily 30 Tab Glipizide (Glipizide Er) 5 Mg Tab.er.24 5 Mg Oral Daily Guaifenesin/Dextromethorphan (Mucinex Dm Er 600-30 Mg Tablet) 1 Each Tab.er.12h 1 Each Oral Every 6 Hours as needed for Nasal Congestion 30 Days 120 07/07/17 Hydralazine Hcl 25 Mg Tab 25 Mg Oral Every 12 Hours Ipratropium [place] 0.2 Mg/1 Ml Solution 2.5 Ml Nebullizer Rt Q6h 30 Days 100 07/07/17 Levofloxacin (Levaquin) 500 Mg Tablet 500 Mg Oral Daily 10 Days 10 07/07/17 Levothyroxine Sodium 88 Mcg Tablet 88 Mcg Oral Daily 30 Tab Ondansetron (Zofran Odt) 4 Mg Tab.rapdis 4 Mg Oral Every 4 Hours as needed for Nausea Potassium Chloride 20 Meq Tab.er.prt 20 Meq Oral Daily Quetiapine Fumarate 25 Mg Tablet 50 Mg Oral Twice A Day Tiotropium [place] (Spiriva) 18 Mcg Cap.w.dev 18 Mcg Inhalation Daily Past Home Medications Medication Directions Ordered Status Acetaminophen With Codeine (Tylenol With Codeine #3 Tablet) 1 Each Tablet, 300 Mg Oral Every 4 Hours as needed for Pain Discontinued Acetaminophen With Codeine (Tylenol With Codeine #3 Tablet) 1 Each Tablet, 300 Mg Oral Discontinued Acetaminophen/Codeine Phosphate (Tylenol # 3*) 1 Ea Tab, 1 Ea Oral Every 6 Hours as needed for Pain 12/17/15 Discontinued Albuterol/Ipratropium 3 Ml Neb, 3 Ml Nebullizer Rt Q4h as needed for Shortness Of Breath 12/17/15 Discontinued Amiodarone Hcl 200 Mg Tablet, 200 Mg Oral Daily Discontinued Amlodipine Besylate (Norvasc) 10 Mg Tab, 10 Mg Oral Daily 03/24/17 Discontinued Amlodipine Besylate 10 Mg Tablet, 5 Mg Oral Daily Discontinued Amlodipine Besylate 5 Mg Tablet, 5 Mg Oral Daily Discontinued Amlodipine Besylate 10 Mg Tablet, 10 Mg Oral Daily Discontinued Ascorbic Acid 500 Mg Tablet, 500 Mg Oral Twice Daily With Meals 09/02/16 Discontinued Aspirin (Aspir 81) 81 Mg Tablet.dr, 81 Mg Oral Daily Discontinued Atorvastatin Calcium 20 Mg Tablet, 20 Mg Oral Today At 9:00PM Discontinued Azithromycin (Z-Best) 250 Mg Tablet, 250 Mg Oral Use As Directed Discontinued B Complex With Vitamin C (B-Complex Plus Vitamin C) 1 Each Tablet, 1 Tab Oral Daily Discontinued Balsam Pawel/Kevil Oil (Venelex Ointment) 60 Gm Oint...g., 60 Gm Topical Daily 12/17/15 Discontinued Bumetanide 1 Mg Tablet, 1 Mg Oral Twice A Day Discontinued Bumetanide 1 Mg Tablet, 0.5 Mg Oral Daily Discontinued Bupropion Hcl 75 Mg Tablet, 75 Mg Oral Every 12 Hours Discontinued Calcium Carbonate 500 Mg Tab, 500 Mg Oral Three Times A Day 12/11/15 Discontinued Calcium Carbonate/Vitamin D3 (Os-Jens 500+D Tablet) 1 Each Tablet, 500 Mg Oral Twice A Day Discontinued Ceftin , 500 Mg Oral Daily 03/24/17 Discontinued Clonidine Hcl 0.1 Mg Tablet, 1 Tab Oral Every 12 Hours Discontinued Clonidine Hcl 0.1 Mg Tablet, 1 Tab Oral Twice A Day Discontinued Clonidine Hcl 0.1 Mg Tablet, 1 Tab Oral Twice A Day Discontinued Clonidine Hcl 0.1 Mg Tablet, 0.1 Mg Oral Bedtime Discontinued Clopidogrel Bisulfate (Clopidogrel) 75 Mg Tablet, 75 Mg Oral Daily Discontinued Dexlansoprazole (Dexilant) 60 Mg Cap., 60 Mg Oral Daily Discontinued Digoxin 125 Mcg Tablet, 0.125 Mg Oral Daily Discontinued Docusate Sodium 100 Mg Capsule, 100 Mg Oral Twice A Day Discontinued Docusate Sodium 100 Mg Capsule, 100 Mg Oral Daily as needed for Constipation Discontinued Doxycycline Hyclate 100 Mg Capsule, 100 Mg Oral Twice A Day 09/02/16 Discontinued Doxycycline Hyclate 100 Mg Capsule, 100 Mg Oral Twice A Day 03/08/16 Discontinued Ferrous Sulfate 325 Mg Tablet, 325 Mg Oral Every 8 Hours Discontinued Ferrous Sulfate (Feosol) 325 Mg Tablet, 325 Mg Oral Twice Daily With Meals Discontinued Ferrous Sulfate 325 Mg Tablet., 325 Mg Oral Daily 09/22/16 Discontinued Ferrous Sulfate (Feosol) 325 Mg Tablet, 325 Mg Oral Twice Daily With Meals Discontinued Ferrous Sulfate (Iron) 325 Mg Tablet, Mg Oral Daily Discontinued Fluconazole (Diflucan) 150 Mg Tablet, 150 Mg Oral Daily 09/02/16 Discontinued Furosemide (Lasix) 40 Mg Tablet, 40 Mg Oral Twice A Day Discontinued Gabapentin 100 Mg Capsule, 100 Mg Oral Twice A Day Discontinued Gabapentin 400 Mg Capsule, 400 Mg Oral Four Times Daily Discontinued [id number] 200 Mg/10 Ml Udc, 100 Mg Oral Every 8 Hours as needed for Cough Discontinued Glipizide 5 Mg Tablet, 2.5 Mg Oral Daily Discontinued Guaifenesin/Dextromethorphan (Mucinex Dm Er 600-30 Mg Tablet) 1 Each Tab.er.12h , 1 Each Oral Every 6 Hours 03/08/16 Discontinued Hydrochlorothiazide 25 Mg Tablet, 25 Mg Oral Daily Discontinued Hydrocodone Bit/Acetaminophen ([place] 10-325 Tablet) 1 Each Tablet, Every 6 Hours Discontinued Hydrocodone Bit/Acetaminophen ([place] 10-325 Tablet) 1 Each Tablet, 1 Tab Oral Four Times Daily as needed for Pain Discontinued Hydrocodone Bit/Acetaminophen ([place] 5-325 Tablet) 1 Each Tablet, 5-325 Mg Oral Every 6 Hours as needed for Pain Discontinued Levothyroxine Sodium 88 Mcg Tablet, 88 Mcg Oral Daily Discontinued Linagliptin (Tradjenta) 5 Mg Tablet, 5 Mg Oral Daily Discontinued Linezolid (Zyvox) 600 Mg Tablet, 600 Mg Oral Every 12 Hours Discontinued Lorazepam 0.5 Mg Tablet, 0.5 A Oral Every 12 Hours as needed for Anxiety Discontinued Magnesium Oxide 400 Mg Tablet, 400 Mg Oral Twice A Day 03/24/17 Discontinued Melatonin/Pyridoxine Hcl (B6) (Melatonin 1 Mg Tablet) 1 Each Tablet, 1 Tab Oral Bedtime Discontinued Memantine Hcl (Namenda) 10 Mg Tablet, 5 Mg Oral Daily Discontinued Metformin Hcl 500 Mg Tablet, 500 Mg Oral Twice A Day Discontinued Metoclopramide Hcl (Reglan) 10 Mg Tablet, 10 Mg Oral Before Meals as needed for Nausea Discontinued Metoclopramide Hcl 10 Mg Tablet, 10 Mg Oral As Needed Discontinued Metoprolol Tartrate 25 Mg Tablet, 25 Mg Oral Twice A Day Discontinued Minocycline Hcl (Minocin) 50 Mg Capsule, 100 Mg Oral Every 12 Hours 05/02/14 Discontinued Mirtazapine 15 Mg Tab, 15 Mg Oral Bedtime Discontinued Mirtazapine 15 Mg Tab, 15 Mg Oral Bedtime Discontinued Montelukast Sodium 10 Mg Tablet, 10 Mg Oral Daily Discontinued Montelukast Sodium 10 Mg Tablet, 10 Mg Oral Bedtime Discontinued Multivitamins/Minerals Tab, 1 Oral Twice Daily With Meals 09/02/16 Discontinued Ondansetron (Zofran Odt) 4 Mg Tab.rapdis, 4 Mg Oral Every 4 Hours Discontinued Pantoprazole Sodium (Protonix) 40 Mg Tablet.dr, 40 Mg Oral Twice A Day Discontinued Potassium Chloride 20 Meq Tab.er.prt, 20 Meq Oral Daily Discontinued Prednisone 20 Mg Tab, 20 Mg Oral Daily Discontinued Prednisone 20 Mg Tab, 20 Mg Oral Twice A Day 03/08/16 Discontinued Prednisone 20 Mg Tab, 20 Mg Oral Discontinued Pregabalin (Lyrica) 75 Mg Cap, 100 Mg Twice A Day Discontinued Pregabalin (Lyrica) 50 Mg Cap, 100 Mg Oral Three Times A Day Discontinued Risperidone 0.25 Mg Tablet, 0.25 Mg Oral Every 8 Hours as needed for Agitation Discontinued Ropinirole Hcl 0.25 Mg Tablet, 0.25 Mg Oral Twice A Day Discontinued Sertraline Hcl (Zoloft) 50 Mg Tablet, 25 Mg Oral Daily Discontinued Sucralfate 1 Gm Tablet, 1 Gm Oral Twice A Day Discontinued Terbinafine Hcl 250 Mg Tablet, 250 Mg Oral Daily Discontinued Tizanidine Hcl 4 Mg Capsule, 4 Mg Oral Every 8 Hours as needed for Muscle Spasms Discontinued Zinc Sulfate 220 Mg Capsule, 220 Mg Oral Twice A Day 03/24/17 Discontinued Social History Social History Problem Response Recorded Date/Time Onset Date Status Hx Psychiatric Problems Yes 07/04/2017 1:02am Not Applicable Not Applicable Hx Eating Disorder No 07/04/2017 1:02am Not Applicable Not Applicable Hx Substance Use Disorder No 07/04/2017 1:02am Not Applicable Not Applicable Hx Depression Yes 07/04/2017 1:02am Not Applicable Not Applicable Hx Alcohol Use No 07/04/2017 1:02am Not Applicable Not Applicable Hx Substance Use Treatment No 07/04/2017 1:02am Not Applicable Not Applicable Hx Physical Abuse No 07/04/2017 1:02am Not Applicable Not Applicable Smoking Status Start Date Stop Date Former smoker Hospital Discharge Instructions No hospital discharge instruction information available. Plan of Care Discharge Date 07/07/17 6:58pm Disposition ALF ACUTE CARE ([facility]) Instructions/Education Provided Pneumonia - Bacterial Prescriptions See Medication Section Functional Status Query Response Date Recorded Assistive Devices None July 04, 2017 12:51am Ambulation Ability Total Assistance July 04, 2017 12:51am Toileting Ability Minimum Assistance July 07, 2017 5:28pm Allergies, Adverse Reactions, Alerts Allergen Type Severity Reaction Status Last Updated Iodine and Iodide Containing Produc Allergy Unknown Active 03/16/17 Sulfa (Sulfonamide Antibiotics) Allergy Mild Active 03/16/17 Ampicillin Allergy Unknown Active 03/16/17 Immunizations No immunization information available. Vital Signs Acute Vital Signs Vital Response Date/Time Temperature (Fahrenheit) 97.0 degrees F (97.6 - 99.5) 07/07/2017 4:24pm Pulse Pulse Rate (adult) 75 bpm (60 - 90) 07/07/2017 4:24pm Respiratory Rate 20 bpm (12 - 24) 07/07/2017 4:24pm Blood Pressure 113/56 mm Hg 07/07/2017 4:24pm Height 5 ft 4 in 07/03/2017 11:54am Weight 114 lb 07/04/2017 1:02am Body Mass Index 19.6 kg/m^2 07/04/2017 1:02am Results Laboratory Results Test Name Result Units Flags Reference Collection Date/Time Result Date/ Time Comments Ferritin 56.93 ng/mL 4.63-204.00 09/21/2016 6:10am 09/21/2016 9:27am Amylase Level 28 U/L 25-125 09/20/2016 12:45pm 09/20/2016 2:18pm Lipase 24 U/L 8-78 09/20/2016 12:45pm 09/20/2016 2:18pm Band Neutrophils % 4 % 02/14/2017 8:00am 02/14/2017 1:00pm Digoxin Level < 0.30 ng/mL L 0.8-2.0 02/13/2017 2:40pm 02/13/2017 4: 38pm Differential Total Cells Counted 100 03/18/2017 6:30am 03/18/2017 8 :37am Neutrophils % (Manual) 61 % 40-74 03/18/2017 6:30am 03/18/2017 8:37am Lymphocytes % (Manual) 18 % L 19-48 03/18/2017 6:30am 03/18/2017 8:37am Monocytes % (Manual) 17 % H 3.4-9.0 03/18/2017 6:30am 03/18/2017 8:37am Eosinophils % (Manual) 2 % 0-7 03/18/2017 6:30am 03/18/2017 8:37am Basophils % (Manual) 2 % H 0-1.5 03/18/2017 6:30am 03/18/2017 8:37am Platelet Estimate ADEQUATE 03/18/2017 6:30am 03/18/2017 8:37am Platelet Morphology Comment FEW LARGE 03/18/2017 6:30am 03/18/2017 8:37am Hypochromasia SLIGHT 03/18/2017 6:30am 03/18/2017 8:37am Poikilocytosis SLIGHT 03/18/2017 6:30am 03/18/2017 8:37am Anisocytosis MODERATE 03/18/2017 6:30am 03/18/2017 8:37am Elliptocytes SLIGHT 03/18/2017 6:30am 03/18/2017 8:37am Red Cell Morphology Comment ABNORMAL 03/18/2017 6:30am 03/18/2017 8 :37am Prothrombin Time 13.4 seconds 11.9-14.5 03/16/2017 6:38pm 03/16/2017 7: 03pm Prothromb Time International Ratio 0.97 03/16/2017 6:38pm 2016 7:03pm Oral Anticoagulant Therapy INR Values: 1. Low Intensity Therapy 1.5 - 2.0 2. Moderate Intensity Therapy 2.0 - 3.0 3. High Intensity Therapy(1) 2.5 - 3.5 4. High Intensity Therapy(2) 3.0 - 4.0 5. Panic Value INR > 5.0 Activated Partial Thromboplast Time 26.6 seconds 23.8-35.5 03/16/2017 6: 38pm 03/16/2017 7:05pm Magnesium Level 2.4 MG/DL H 1.3-2.1 03/17/2017 10:50am 03/17/2017 11: 36am White Blood Count 10.67 x10e3/uL 4.8-10.8 07/06/2017 5:51am 07/06/2017 6:16am Red Blood Count 3.38 x10e6/uL L 3.6-5.1 07/06/2017 5:51am 07/06/2017 6: 16am Hemoglobin 9.6 g/dL L 12.0-16.0 07/06/2017 5:51am 07/06/2017 6:16am Hematocrit 29.9 % L 34.2-44.1 07/06/2017 5:51am 07/06/2017 6:16am Mean Corpuscular Volume 88.5 fL 81-99 07/06/2017 5:51am 07/06/2017 6: 16am Mean Corpuscular Hemoglobin 28.4 pg 28-32 07/06/2017 5:51am 07/06/2017 6:16am Mean Corpuscular Hemoglobin Concent 32.1 g/dL 31-35 07/06/2017 5:51am 07/06/2017 6:16am Red Cell Distribution Width 14.9 % H 11.7-14.4 07/06/2017 5:51am 2017 6:16am Platelet Count 159 x10e3/uL 140-360 07/06/2017 5:51am 07/06/2017 6: 16am Neutrophils (%) (Auto) 76.9 % 38.7-80.0 07/06/2017 5:51am 07/06/2017 6: 16am Lymphocytes (%) (Auto) 11.2 % L 18.0-39.1 07/06/2017 5:51am 07/06/2017 6 :16am Monocytes (%) (Auto) 10.8 % 4.4-11.3 07/06/2017 5:51am 07/06/2017 6: 16am Eosinophils (%) (Auto) 0.5 % 0.0-6.0 07/06/2017 5:51am 07/06/2017 6: 16am Basophils (%) (Auto) 0.1 % 0.0-1.0 07/06/2017 5:51am 07/06/2017 6:16am IM GRANULOCYTES % 0.5 % 0.0-1.0 07/06/2017 5:5107/06/2017 6:16am Neutrophils # (Auto) 8.2 H 2.1-6.9 07/06/2017 5:51am 07/06/2017 6: 16am Lymphocytes # (Auto) 1.2 1.0-3.2 07/06/2017 5:51am 07/06/2017 6:16am Monocytes # (Auto) 1.2 H 0.2-0.8 07/06/2017 5:51am 07/06/2017 6:16am Eosinophils # (Auto) 0.1 0.0-0.4 07/06/2017 5:51am 07/06/2017 6:16am Basophils # (Auto) 0.0 0.0-0.1 07/06/2017 5:51am 07/06/2017 6:16am Absolute Immature Granulocyte (auto 0.05 x10e3/uL 0-0.1 07/06/2017 5: 5107/06/2017 6:16am Urine Color YELLOW YELLOW 07/03/2017 5:50pm 07/03/2017 6:06pm Urine Clarity SL CLOUDY CLEAR 07/03/2017 5:50pm 07/03/2017 6:06pm Urine Specific [place] 1.020 1.010-1.025 07/03/2017 5:50pm 2017 6:06pm Urine pH 5 5 - 7 07/03/2017 5:50pm 07/03/2017 6:06pm Urine Leukocyte Esterase NEGATIVE NEGATIVE 07/03/2017 5:50pm 2017 6:06pm Urine Nitrite NEGATIVE NEGATIVE 07/03/2017 5:50pm 07/03/2017 6:06pm Urine Protein TRACE H NEGATIVE 07/03/2017 5:50pm 07/03/2017 6:06pm Urine Glucose (UA) NEGATIVE NEGATIVE 07/03/2017 5:50pm 07/03/2017 6: 06pm Urine Ketones NEGATIVE NEGATIVE 07/03/2017 5:50pm 07/03/2017 6:06pm Urine Urobilinogen 0.2 mg/dL 0.2 - 1 07/03/2017 5:50pm 07/03/2017 6: 06pm Urine Bilirubin NEGATIVE NEGATIVE 07/03/2017 5:50pm 07/03/2017 6: 06pm Urine Blood NEGATIVE NEGATIVE 07/03/2017 5:50pm 07/03/2017 6:06pm Urine WBC NONE /HPF 0-5 07/03/2017 5:50pm 07/03/2017 6:19pm Urine RBC NONE /HPF 0-5 07/03/2017 5:50pm 07/03/2017 6:19pm Urine Bacteria NONE /HPF NONE 07/03/2017 5:50pm 07/03/2017 6:19pm Urine Epithelial Cells RARE /LPF NONE 07/03/2017 5:50pm 07/03/2017 6: 19pm Sodium Level 135 mmol/L L 136-145 07/06/2017 5:51am 07/06/2017 6:46am Potassium Level 4.0 mmol/L 3.5-5.1 07/06/2017 5:51am 07/06/2017 6:46am Chloride Level 105 mmol/L 98-107 07/06/2017 5:51am 07/06/2017 6:46am Carbon Dioxide Level 20 mmol/L L 22-07/06/2017 5:51am 07/06/2017 6: 46am Anion Gap 14.0 mmol/L 8-16 07/06/2017 5:51am 07/06/2017 6:46am Blood Urea Nitrogen 23 mg/dL 7-07/06/2017 5:51am 07/06/2017 6:46am Creatinine 1.44 mg/dL H 0.57-1.11 07/06/2017 5:51am 07/06/2017 6:46am BUN/Creatinine Ratio 16 6-25 07/06/2017 5:51am 07/06/2017 6:46am Estimat Glomerular Filtration Rate 36 ML/MIN L 60- 07/06/2017 5:51am 6:46am Ranges were taken from the National Kidney Disease Education Program and the National Kid[employer] literature. Reference ranges: 60 or greater: Normal 16-59 (for 3 consecutive months): Chronic kidney disease 15 or less: Kidney failure Glucose Level 51 mg/dL *L 74-118 07/06/2017 5:51am 07/06/2017 6:46am Results called to LAURA CAIN RN at 0643 on 07/06/17 by Wood Mobley. RB OK. Calcium Level 8.6 mg/dL 8.4-10.2 07/06/2017 5:51am 07/06/2017 6:46am Bedside Glucose 76 mg/dL 70-120 07/07/2017 3:43pm 07/07/2017 4:25pm Meter ID: [id number] Iron Level 34 ug/dL L 50-170 07/05/2017 6:17am 07/05/2017 7:20am Total Iron Binding Capacity 248 ug/dL L 261-478 07/05/2017 6:17am 2017 7:13am Percent Iron Saturation 14 % L 15-50 07/05/2017 6:17am 07/05/2017 7: 20am Transferrin 177 mg/dL L 180-382 07/05/2017 6:17am 07/05/2017 7:13am Total Bilirubin 1.4 mg/dL H 0.2-1.2 07/05/2017 6:17am 07/05/2017 7:11am Aspartate Amino Transf (AST/SGOT) 11 IU/L 5-34 07/05/2017 6:17am 2017 7:11am Alanine Aminotransferase (ALT/SGPT) 7 IU/L 0-55 07/05/2017 6:17am 07/05 7:11am Total Protein 6.3 g/dL L 6.5-8.1 07/05/2017 6:17am 07/05/2017 7:11am Albumin 2.6 g/dL L 3.5-5.0 07/05/2017 6:17am 07/05/2017 7:11am Globulin 3.7 g/dL H 2.3-3.5 07/05/2017 6:17am 07/05/2017 7:11am Albumin/Globulin Ratio 0.7 L 0.8-2.0 07/05/2017 6:17am 07/05/2017 7: 11am Alkaline Phosphatase 74 IU/L 40-150 07/05/2017 6:17am 07/05/2017 7: 11am B-Type Natriuretic Peptide 328.3 pg/mL H 0-100 07/05/2017 6:17am 2017 8:01am Creatine Kinase 45 IU/L 29-168 07/03/2017 1:35pm 07/03/2017 2:15pm Creatine Kinase MB 1.20 ng/mL 0-5.0 07/03/2017 1:35pm 07/03/2017 2: 17pm Troponin I 0.169 ng/mL 0-0.300 07/03/2017 1:35pm 07/03/2017 2:17pm Vitamin B12 Level 420 pg/mL 213-816 07/06/2017 5:51am 07/06/2017 7: 34am Folate 5.9 ng/mL L 7.0-15.4 07/06/2017 5:51am 07/06/2017 7:34am Thyroid Stimulating Hormone (TSH) 4.821 uIU/mL 0.350-4.940 07/05/2017 6: 17am 07/05/2017 8:01am Microbiology Results Procedure Source Organism/Result Collection Date/Time Result Date/Time Result Status Urine Culture Urine,Clean Catch ESCHERICHIA COLI 02/13/2017 2:40pm 2016 7:31am Final Wound Culture Sacral OBI ALBICANS 03/20/2017 6:00pm 03/25/2017 8:29am Final ESCHERICHIA COLI 03/20/2017 6:00pm 03/25/2017 8:29am Final Blood Culture Blood NO GROWTH AFTER 72 HOURS 7:50pm 07/06/2017 9:22pm Preliminary Procedures Procedure Status Date Provider(s) TRANSFUSE NONAUT RED BLOOD CELLS IN PERIPH VEIN, PERC Completed 02/15/17 LUCIANAI -CARLITOS KO MD TRANSFUSE NONAUT RED BLOOD CELLS IN PERIPH VEIN, OPEN Completed 03/17/17 JAEC JEREZ MD INSERTION OF INFUSION DEV INTO SUP VENA CAVA, PERC APPROACH Completed NEELIMA RECINOS MD EXCISION OF STOMACH, PYLORUS, ENDO, DIAGN Completed 03/23/17 JANNETTE MERCADO MD X-ray of chest, two views Active 09/20/16 CHRISTIAN EMERSON Computed tomography of brain without radiopaque contrast Active 02/13/17 DEIRDRE SUNSHINE MD Computed tomography of cervical spine without contrast Active 02/13/17 DEIRDRE SUNSHINE MD Computed tomography of brain without radiopaque contrast Active 07/03/17 DEIRDRE SUNSHINE MD X-ray of chest, two views Active 07/03/17 DEIRDRE SUNSHINE MD Computed tomography of chest without contrast Active 07/04/17 HARJEET MARCELO MD Encounters Encounter Location Arrival/Admit Date Discharge/Depart Date Attending Provider Discharged Inpatient [facility] 07/04/17 4:07pm 07/07/17 6:58pm NEELIMA RECINOS MD Discharged Inpatient [facility] 03/17/17 11:45am 8:22pm NEELIMA RECINOS MD Discharged Inpatient [facility] 02/13/17 7:20pm 02/19/17 5:09pm NEELIMA RECINOS MD Discharged Inpatient (obs) [facility] 09/20/16 3:03pm 10:55am NEELIMA RECINOS MD
--- NOTE | 2017-07-09 17:15 | Diagnostic Imaging Report ---
PROCEDURE: Frontal and lateral views of the chest. COMPARISON: Patients [facility], CT, CT CHEST WO, 07/04/2017, 13:35. INDICATIONS: sob for a few days FINDINGS: Lines/tubes: Stable left upper chest Port-A-Cath, with distal tip projecting in the distal SVC, and stable right upper chest multilead cardiac device. Lungs: Lungs are well-inflated. Bilateral lower lobe opacities, left greater than right. Prominence of the interstitial markings extending from the kristopher Pleura: Bilateral small pleural effusions, left greater than right Heart and mediastinum: Cardiac silhouette is obscured. Central pulmonary venous congestion. Bones: No acute bony abnormality. IMPRESSION: 1. central pulmonary venous congestion and prominence of the interstitial markings extending from the kristopher, likely reflecting mild interstitial edema. 2. Bilateral small pleural effusions. 3. Bilateral lower lobe opacities, left greater than right, which may reflect compressive atelectasis and/or pneumonia, as previously noted on CT, chest, 07/04/2017 Ming Baig M.D. Dictated by: Ming Baig M.D. on 07/09/2017 at 17:15 Electronically approved by: Mnig Baig M.D. on 07/09/2017 at 17:15
[2017-07-09] MEDS ORDERED: ALBUTEROL SULF 0.083% NEB SOLN 3 ML NEB NEB STA (21:26)
[2017-07-09] MEDS ORDERED: IPRATROPIUM BROMIDE 0.02% 2.5 ML NEB NEB ONE (21:30)
[2017-07-09 21:34] LABS: BILIRUBIN,URINE NEGATIVE (NEGATIVE); CLARITY,URINE CLEAR (CLEAR); COLOR,URINE YELLOW (YELLOW); KETONES,URINE NEGATIVE (NEGATIVE); LEUKOCYTE ESTERASE ,URINE NEGATIVE (NEGATIVE); NITRITE,URINE NEGATIVE (NEGATIVE); PROTEIN,URINE DIPSTICK NEGATIVE (NEGATIVE); URINE UROBILINOGEN 0.2 mg/dL (0.2 - 1)
[2017-07-09] MEDS ORDERED: CEFTRIAXONE SOD 1 GM VIAL IV SCH (22:15)
[2017-07-09] MEDS ORDERED: AZITHROMYCIN 500MG/NS 250 ML 250 ML IV SCH (22:15)
== END 2017-07-10 00:55 | disposition left against medical advice (07) ==
LOC: ER 15:45
DX: R06.00 Dyspnea, unspecified (principal); R05 Cough; J15.9 Unspecified bacterial pneumonia; I50.1 Left ventricular failure, unspecified; J44.1 Chronic obstructive pulmonary disease with (acute) exacerbation
CPT/HCPCS: 71046; 81001; 93005; 94640; 99284